=== PATIENT | female | born 1965 | race Hispanic/Latino ===

== ENCOUNTER → 2019-04-10 | Day surgery (SDC) | payer OTHER ==
[2019-03-27 18:08] LABS: ANION GAP 14.4 mmol/L (8-16); BLOOD UREA NITROGEN 14 mg/dL (7-26); BUN/CREATININE RATIO 19 (6-25); CALCIUM 9.9 mg/dL (8.4-10.2); CARBON DIOXIDE 29 mmol/L (22-29); CHLORIDE 102 mmol/L (98-107); CREATININE, SERUM 0.72 mg/dL (0.57-1.11); EST GLOMERULAR FILTRATION RATE > 60 ML/MIN (60-); GLUCOSE 144 mg/dL (74-118); POTASSIUM 4.4 mmol/L (3.5-5.1); SODIUM 141 mmol/L (136-145)
[~2019-04-10] MED LIST: ACETAMINOP325 MG/10 PO; ANTIFUNGAL CREA14 GM TOP; CENTRUM SILVER1 EAC3 PO; ESTROVEN MAX400 MCG PO; FENTANYL CITRATE/PF 100MCG/2 ML INJ ONE; GLUCAGON FOR INJ 1 MG VIAL ONE; HYOSCYAMINE 0.125 MG TAB ONE; METFORMIN HCL500 M1 PO; MIDAZOLAM HCL 2 MG/2 ML VIAL ONE; NYSTATIN1 EAC2 TOP; OZEMPIC SQ; PROPOFOL IV EMULSION 10 MG/ML 50 ML VIAL ONE
--- OUTSIDE RECORDS SUMMARY | 2019-04-10 08:56 | XMS REPORT ---
Author Author [facility] Address Unknown Phone Unavailable Care Team Providers Care Prefitter Doors Name Role Phone ER, PHYSICIAN PP Unavailable WALESKA CURRY Unavailable Unavailable Problems This patient has no known problems. Allergies, Adverse Reactions, Alerts This patient has no known allergies or adverse reactions. Medications This patient has no known medications. Encounters Start Date/Time End Date/Time Encounter Type Admission Type Attending Clinicians Care Facility Care Department Encounter ID 2017-07-22 22:51:00 2017-07-22 22:51:00 Emergency E WALESKA CURRY [facility] [id number] Results Test Description Test Time Test Comments Text Results Atomic Results Result Comments Urinalysis Complete 2017-07-23 01:40:00 Color (test code=COLOR) Yellow Yellow,Straw,Pl yellow Clarity (test code=CLAR) Clear Clear Specific [place] (test code=SPGR) 1.031 1.001-1.035 pH (test code=PH) 5.0 5.0-9.0 Ketone (test code=KET) 150 mg/dL Negative Glucose (test code=GLUCUR) Negative mg/dL Negative Protein (test code=PROT) 150 mg/dL Negative Bilirubin (test code=BILI) See IctoTest mg/dL Negative Occult Blood (test code=UDOB) Large Negative Urobilinogen (test code=UROB) 0.2 mg/dL 0.2-1.0 Nitrite (test code=NIT) Negative Negative Leuk Esterase (test code=LEUK) Negative Negative Ictotest (test code=ICTOTEST) Confirmed Negative Negative,Confirmed Negative Micros Exam (test code=MEXAM) Indicated Epithelial Cells (test code=EPI) Few /LPF 0-30 WBC, Urine (test code=UWBC) 0-5 /HPF 0-5 RBC, Urine (test code=URBC) 6-10 /HPF 0-5 Bacteria (test code=BACT) Few /HPF [id number] 00:03:00* Test Item Value Reference Range Comments Lipase (test code=LIP) 28 U/L 13-60 Comprehensive Metabolic [id number] 00:03:00* Test Item Value Reference Range Comments Sodium (test code=NA) 136 mmol/L 135-145 Potassium (test code=K) 3.8 mmol/L 3.5-5.1 Chloride (test code=CL) 96 mmol/L 98-105 Carbon Dioxide (test code=CO2) 26 mmol/L 22-29 Glucose (test code=GLU) 252 mg/dL 70-115 Blood Urea Nitrogen (test code=BUN) 21 mg/dL 6-20 Creatinine (test code=CREAT) 0.8 mg/dL 0.5-0.9 Calcium (test code=CA) 9.7 mg/dL 8.3-10.5 Prot Total (test code=TP) 7.9 g/dL 6.4-8.3 Albumin (test code=ALB) 4.4 g/dL 3.5-5.2 A/G Ratio (test code=AGRATIO) 1.3 Ratio Globulin (test code=GLOB) 3.5 2.9-3.1 Bili Total (test code=TBIL) 0.4 mg/dL 0.1-0.9 Alk Phos (test code=APHOS) 83 U/L 35-104 AST (test code=AST) 24 U/L 1-32 ALT (test code=ALT) 33 U/L 1-33 BUN/Creatinine Ratio (test code=BCRATIO) 26.3 Anion Gap (test code=AGAP) 14 mmol/L 7-16 Estimated GFR (test code=GFR) >60 mL/min/1.73m2 eGFR (estimated Glomerular Filtration Rate) is an estimated value,calculated from the patient's serum creatinine using the MDRD equation.It is NOT the patient's actual GFR. The eGFR provides a more clinicallyuseful measure of kidney disease than serum creatinine alone.This calculation takes sex and race into account, if the informationis provided. If the race is not provided, and the patient isAfrican-[place], multiply by 1.212. If sex is not provided, and thepatient is female, multiply by 0.742. Results for patients <18 years ofage have not been validated by the MDRD study and should be interpretedwith caution.eGFR Result Interpretation:eGFR > or=60 is in the Normal RangeeGFR < 60 may mean kidney diseaseeGFR < 15 may mean kidney failureRanges recommended by the National Kidney Foundat ion,http://nkdep.nih.gov CBC with [id number] 23:42:00* Test Item Value Reference Range Comments WBC (test code=WBC) 14.9 K/cumm 4.4-10.5 RBC (test code=RBC) 4.97 M/cumm 3.75-5.20 Hemoglobin (test code=HGB) 14.5 gm/dL 12.2-14.8 Hematocrit (test code=HCT) 42.8 % 36.5-44.4 MCV (test code=MCV) 86.1 fL 80-100 MCH (test code=MCH) 29.1 pg 27.0-32.5 MCHC (test code=MCHC) 33.8 g/dL 32.0-37.5 RDW (test code=RDW) 13.0 % 11.5-14.5 Platelet Count (test code=PLTCT) 305 K/cumm 140-440 MPV (test code=MPV) 10.0 fL Diff Method (test code=DIFFM) Auto Neutrophil (test code=NEUT) 85.9 % 36-70 Lymphocyte (test code=LYMPH) 10.3 % 12-44 Monocyte (test code=MONO) 2.6 % 0-11 Eosinophil (test code=EOS) 1.0 % 0-7 Basophil (test code=BASO) 0.2 % 0-2 Neutro Abs (test code=ANEUT) 12.8 K/cumm 1.6-7.4 Lymph Abs (test code=ALYMPH) 1.5 K/cumm 0.5-4.6 [place] Abs (test code=AMONO) 0.4 K/cumm 0.0-1.2 Eos Abs (test code=AEOS) 0.16 K/cumm 0.00-0.74 Baso Abs (test code=ABASO) 0.0 K/cumm 0.00-0.21
[2019-04-10 14:15] VITALS: BP 123/71
--- NOTE | 2019-04-10 20:20 | Operative Report ---
DATE OF PROCEDURE: 04/10/2019 SURGEON: Robi Pablo MD PROCEDURES: Colonoscopy and polypectomy. INDICATION FOR PROCEDURES: Colorectal cancer screening. MEDICATIONS: The patient was done under MAC, please see anesthesiologist's note. PROCEDURE IN DETAIL: With the patient in left lateral decubitus position, a flexible fiberoptic Olympus colonoscope was inserted into the rectum with ease and advanced all the way to the cecum. It was then withdrawn slowly. Mucosa overlying the cecum, ascending colon, transverse colon, and descending colon appeared to be within normal limits. One minute polyp was hot biopsied from the sigmoid colon and site was hemoclipped. The rectum appeared to be within normal limits. The scope was then retroflexed into the distal rectum and small internal hemorrhoids were noted, none of which was actively bleeding. The scope was then straightened out. The scope was subsequently withdrawn and the patient tolerated the procedure well. IMPRESSION: 1. Sigmoid colon polyp, hot biopsied, site hemoclipped. 2. Internal hemorrhoids, none actively bleeding. PLAN: Follow up histology. Initiate high-fiber, low-fat diet. Initiate high-fiber supplement. The patient might benefit from a followup colonoscopy in 5 years. Robi Pablo MD [facility] /[id number] cc: Dr. Adair Leigh
== END | disposition home or self-care (01) ==
LOC: OR 08:53
PROVIDERS: ATTEND Internal Medicine Gastroenterology
DX: Z12.11 Encounter for screening for malignant neoplasm of colon (principal); K62.5 Hemorrhage of anus and rectum; K63.5 Polyp of colon; K64.8 Other hemorrhoids; R03.0 Elevated blood-pressure reading, without diagnosis of hypertension; E11.9 Type 2 diabetes mellitus without complications; Z79.84 Long term (current) use of oral hypoglycemic drugs; J45.20 Mild intermittent asthma, uncomplicated; G47.33 Obstructive sleep apnea (adult) (pediatric); Z01.812 Encounter for preprocedural laboratory examination; Z01.810 Encounter for preprocedural cardiovascular examination
CPT/HCPCS: 36415 ×2; 45384; 80048; 81025; 82948; 93005; J1610; J2250; J2704; J3010; 45378

== ENCOUNTER → 2019-04-21 | Outpatient (CLI) | payer OTHER ==
[~2019-04-21] MED LIST changes: -FENTANYL CITRATE/PF 100MCG/2 ML INJ ONE; -GLUCAGON FOR INJ 1 MG VIAL ONE; -HYOSCYAMINE 0.125 MG TAB ONE; -MIDAZOLAM HCL 2 MG/2 ML VIAL ONE; -PROPOFOL IV EMULSION 10 MG/ML 50 ML VIAL ONE
--- NOTE | 2019-05-09 09:29 | Diagnostic Imaging Report ---
#[id number] - [id number] #BILATERAL DIGITAL SCREENING MAMMOGRAM WITH CAD: 04/21/2019 CLINICAL: Routine screening. Comparison is made to exams dated: 05/12/2017 mammogram and 03/20/2016 mammogram - [facility]. Current study contains 7 films. The tissue of both breasts is predominantly fatty. Current study was also evaluated with a Computer Aided Detection (CAD) system. Benign appearing calcifications are noted bilaterally. No significant masses, calcifications, or other findings are seen in either breast. IMPRESSION: BENIGN There is no mammographic evidence of malignancy. A 1 year screening mammogram is recommended. The patient will be notified by letter of the results. HARSHAD CAM M.D. ct/penrad:05/05/2019 10:11:59 Media Relations Manager: Autumn MUNOZ)(Larry), [facility] letter sent: Normal Exam Mammogram BI-RADS: 2 Benign
== END ==
LOC: MAMMO 12:01
PROVIDERS: ATTEND General Practice
DX: Z12.31 Encounter for screening mammogram for malignant neoplasm of breast (principal)
CPT/HCPCS: 77067